=== PATIENT | female | born 1945 | race Caucasian/White ===

== ENCOUNTER → 2017-05-17 | Outpatient (CLI) | payer BC ==
[~2017-05-17] MED LIST: CALCTAB5 PO; DLB500 PO; GLUC1CAP33 PO; MULT-506 PO; NRN300 PO; SYN112 PO; TURM1POW PO; VALS160T58 PO; ZCR40 PO
--- NOTE | 2017-05-17 18:14 | DIAGNOSTIC IMAGING REPORT ---
LEFT HAND MIN 3 VIEWS ROUTINE CLINICAL HISTORY: PAIN IN LEFT HAND TRAUMA COMPARISON: None. DISCUSSION: The bones are osteopenic. No fractures or dislocations are visualized. There is no evidence of erosive disease. IMPRESSION: Osteopenia. No fractures or dislocations identified. Electronically signed by: Andrea Valentine M.D. 05/17/2017 6:13 PM Dictated Date/Time: 05/17/2017 6:12 PM
--- NOTE | 2017-05-17 18:14 | DIAGNOSTIC IMAGING REPORT ---
RIGHT FOOT MIN 3 VIEWS ROUTINE CLINICAL HISTORY: RIGHT FOOT PAIN Right pain COMPARISON: None. DISCUSSION: Generalized degenerative change. Osteopenia. Possible transverse nondisplaced fracture base fifth metatarsal.. Small heel spur. There is no evidence for soft tissue swelling. IMPRESSION: Nondisplaced transverse fracture base fifth metatarsal. Osteopenia/osteoporosis. Small heel spur. The above report was generated using voice recognition software. It may contain grammatical, syntax or spelling errors. Electronically signed by: Jacob Van M.D. 05/17/2017 6:13 PM Dictated Date/Time: 05/17/2017 6:11 PM
--- NOTE | 2017-05-17 18:15 | DIAGNOSTIC IMAGING REPORT ---
LEFT WRIST MIN 3 VIEWS ROUTINE CLINICAL HISTORY: PAIN IN LEFT HAND pain COMPARISON: None. DISCUSSION: Generalized degenerative change. Osteoporosis. No acute cortical abnormality. Mild nonspecific generalized soft tissue edema. IMPRESSION: Osteoporosis. Mild soft tissue edema. No acute bony abnormality. The above report was generated using voice recognition software. It may contain grammatical, syntax or spelling errors. Electronically signed by: Jacob Van M.D. 05/17/2017 6:14 PM Dictated Date/Time: 05/17/2017 6:13 PM
== END | disposition home or self-care (01) ==
LOC: C.RAD 17:29
PROVIDERS: ATTEND Nurse Practitioner Family
DX: M79.642 Pain in left hand (principal); S92.314A Nondisplaced fracture of first metatarsal bone, right foot, initial encounter for closed fracture; W18.30XA Fall on same level, unspecified, initial encounter; M81.0 Age-related osteoporosis without current pathological fracture; M85.89 Other specified disorders of bone density and structure, multiple sites

== ENCOUNTER → 2017-06-08 | Outpatient (CLI) | payer BC ==
--- NOTE | 2017-06-08 09:58 | DIAGNOSTIC IMAGING REPORT ---
RIGHT FOOT 3 VIEWS HISTORY: RIGHT FOOT PAIN Right COMPARISON: Right foot 05/17/2017. FINDINGS: The bones are osteopenic. Tiny plantar heel spur. Partially healed fracture at the base of the fifth metatarsal. No acute fractures identified. The Lisfranc joint is intact. Soft tissues are unremarkable. No radiopaque foreign bodies. IMPRESSION: Partially healed fracture at the base of the fifth metatarsal. Electronically signed by: Subhash Hernandez M.D. 06/08/2017 9:57 AM Dictated Date/Time: 06/08/2017 9:55 AM
== END | disposition home or self-care (01) ==
LOC: C.RDSM 10:00
PROVIDERS: ATTEND Physician Assistant
DX: M79.671 Pain in right foot (principal)

== ENCOUNTER → 2017-07-02 | Outpatient (CLI) | payer BC ==
--- NOTE | 2017-07-02 08:43 | DIAGNOSTIC IMAGING REPORT ---
RIGHT FOOT MIN 3 VIEWS CLINICAL HISTORY: Follow-up right foot fracture. COMPARISON: Right foot radiographs May 17, 2017 and June 08, 2017. FINDINGS: The tarsometatarsal joints are intact. Osteopenia is noted. The slightly distracted fracture within the base of the right fifth metatarsal is noted. There is minimal callus formation. No significant interval healing is noted since prior exam. Alignment is unchanged. No additional fractures are identified. IMPRESSION: No significant interval healing of the minimally distracted fracture of the base of the right fifth metatarsal since exam of June 08, 2017. Electronically signed by: Jose Heart M.D. 07/02/2017 8:41 AM Dictated Date/Time: 07/02/2017 8:38 AM
== END | disposition home or self-care (01) ==
LOC: C.RDSM 08:45
PROVIDERS: ATTEND Physician Assistant
DX: S92.351A Displaced fracture of fifth metatarsal bone, right foot, initial encounter for closed fracture (principal); X58.XXXA Exposure to other specified factors, initial encounter

== ENCOUNTER → 2017-07-06 | Outpatient (CLI) | payer BC ==
--- NOTE | 2017-07-09 13:33 | MAMMOGRAPHY REPORT ---
BILATERAL DIGITAL SCREENING MAMMOGRAM WITH CAD: 07/06/2017 TECHNIQUE: Current study was also evaluated with a Computer Aided Detection (CAD) system. Bilateral CC and MLO views were obtained. COMPARISON: Comparison is made to exams dated: 07/04/2016 mammogram, 07/01/2015 mammogram, and 011 mammogram - [facility]. BREAST COMPOSITION: The tissue of both breasts is extremely dense, which lowers the sensitivity of m ammography. FINDINGS: No suspicious masses, calcifications, or areas of architectural distortion are noted in ei ther breast. There has been no significant interval change compared to prior exams. Scattered bilater al benign-appearing calcifications are not significantly changed. IMPRESSION: ACR BI-RADS CATEGORY 2: BENIGN There is no mammographic evidence of malignancy. A 1 year screening mammogram is recommended. The pa tient will receive written notification of the results. Approximately 10% of breast cancers are not detected with mammography. A negative mammographic report should not delay biopsy if a clinically suggestive mass is present. Toshia Hall M.D. ah/:07/06/2017 17:00:40 Tight Cooper: Nuha MURILLO(Lynne)(M), [facility] letter sent: Normal 1/2 BI-RADS Code: ACR BI-RADS Category 2: Benign
== END | disposition home or self-care (01) ==
LOC: C.MAMM 09:57
PROVIDERS: ATTEND Family Medicine
DX: Z12.31 Encounter for screening mammogram for malignant neoplasm of breast (principal)

== ENCOUNTER → 2017-07-17 | Outpatient (CLI) | payer BC ==
[2017-07-17 12:24] LABS: CALCIUM 9.6 mg/dl (8.5-10.1)
[2017-07-17 12:38] LABS: INSULIN FASTING 9.5 mU/L (3-25)
[2017-07-17 12:39] LABS: THYROID STIMULATING HORMONE 2.19 uIu/ml (0.300-4.500)
== END | disposition home or self-care (01) ==
LOC: C.LAB1850 09:03
PROVIDERS: ATTEND Internal Medicine Endocrinology, Diabetes & Metabolism
DX: E03.9 Hypothyroidism, unspecified (principal); E06.3 Autoimmune thyroiditis; M81.0 Age-related osteoporosis without current pathological fracture; R79.9 Abnormal finding of blood chemistry, unspecified

== ENCOUNTER → 2017-08-23 | Outpatient (CLI) | payer BC ==
--- NOTE | 2017-08-23 16:42 | DIAGNOSTIC IMAGING REPORT ---
LEFT WRIST 4 VIEWS CLINICAL HISTORY: Left wrist pain. FINDINGS: 4 views of left wrist are compared to study dated 05/17/2017. The skeletal structures are heterogeneously osteopenic. No fracture is seen. There is mild narrowing at the radiocarpal articulation. Mild arthritic change is seen involving the intercarpal joints and at the first carpometacarpal joint. The overlying soft tissues are within normal limits. No erosive change is seen. IMPRESSION: Osteopenia and mild arthritic change as above. No left wrist fracture is identified. Electronically signed by: Royer Vega M.D. 08/23/2017 4:40 PM Dictated Date/Time: 08/23/2017 4:38 PM
== END | disposition home or self-care (01) ==
LOC: C.RAD 16:18
PROVIDERS: ATTEND Nurse Practitioner Family
DX: M25.532 Pain in left wrist (principal); M85.88 Other specified disorders of bone density and structure, other site

== ENCOUNTER → 2017-08-24 | Outpatient (CLI) | payer BC ==
--- NOTE | 2017-08-24 16:13 | DIAGNOSTIC IMAGING REPORT ---
L WRIST 2 VIEWS HISTORY: 71 years-old Female LEFT WRIST NAVICULAR PAIN acute left-sided wrist pain COMPARISON: Left wrist radiographs 08/23/2017 TECHNIQUE: Single navicular view of the left wrist FINDINGS: Bones appear mildly demineralized without acute fracture or dislocation. Mild to moderate degenerative changes are noted within the triscaphe and first carpometacarpal joints. Mild soft tissue swelling is noted lateral to the scaphoid. No opaque foreign body. IMPRESSION: 1. Mild soft tissue swelling without acute fracture or dislocation. 2. Mild to moderate degenerative changes as above. The above report was generated using voice recognition software. It may contain grammatical, syntax or spelling errors. Electronically signed by: Chidi Lopez M.D. 08/24/2017 4:11 PM Dictated Date/Time: 08/24/2017 4:06 PM
== END | disposition home or self-care (01) ==
LOC: C.RDSM 15:43
PROVIDERS: ATTEND Family Medicine
DX: M25.532 Pain in left wrist (principal); M19.032 Primary osteoarthritis, left wrist

== ENCOUNTER → 2017-09-04 | Day surgery (SDC) | payer BC ==
[~2017-09-04] VITALS: Ht 165.1 cm; Wt 57.0 kg
[~2017-09-04] MED LIST changes: +ACETAMINOPHEN 325 MG TAB ONE; +ACETAMINOPHEN 325 MG TAB PO SCH; +GABA-113 PO; +LEVO88TA3 PO; +SIMV20TA2 PO; +SODIUM CHLORIDE 0.9% 1000ML 1,000 ML IV SCH; +ZOLEDRONIC ACID INJ 5 MG in EMPTY BAG 0 ML IV SCH
[2017-09-04 13:14] VITALS: Ht 165.1 cm; Wt 57.0 kg
[2017-09-04 13:15] VITALS: BP_SYST 123; PULSE 69; TEMP 37; O2SAT 99
== END | disposition home or self-care (01) ==
LOC: C.MTU 12:51
PROVIDERS: ATTEND Family Medicine
DX: M81.0 Age-related osteoporosis without current pathological fracture (principal)

== ENCOUNTER → 2018-03-06 | Outpatient (CLI) | payer BC ==
[~2018-03-06] MED LIST changes: -ACETAMINOPHEN 325 MG TAB ONE; -ACETAMINOPHEN 325 MG TAB PO SCH; -NRN300 PO; -SODIUM CHLORIDE 0.9% 1000ML 1,000 ML IV SCH; -SYN112 PO; -ZCR40 PO; -ZOLEDRONIC ACID INJ 5 MG in EMPTY BAG 0 ML IV SCH
--- NOTE | 2018-03-06 18:49 | DIAGNOSTIC IMAGING REPORT ---
PA CHEST WITH RIGHT-SIDED RIB SERIES CLINICAL HISTORY: Right-sided chest wall pain. FINDINGS: A PA chest radiograph with 4 additional views may right-sided rib series is compared to study dated 09/29/2016. The heart is mildly enlarged and there is atherosclerotic calcification of the thoracic aorta. The pulmonary vasculature is noncongested. Chronic interstitial thickening is similar to previous. No airspace consolidation or pleural effusion is identified. No pneumothorax is seen. The skeletal structures are osteopenic. There is no radiographic evidence of acute/distracted right-sided rib fracture on the rib series. There is a chronic appearing right anterolateral eighth rib fracture. The remainder of the bony thorax is grossly intact. Mild degenerative change and scoliosis are noted in the thoracic spine. IMPRESSION: 1. Mild cardiac enlargement with no acute cardiopulmonary. 2. There is no radiographic evidence of acute/distracted right-sided rib fracture as clinically queried. Electronically signed by: Royer Vega M.D. 03/06/2018 6:48 PM Dictated Date/Time: 03/06/2018 6:45 PM
== END | disposition home or self-care (01) ==
LOC: C.RAD 17:59
PROVIDERS: ATTEND Nurse Practitioner Family
DX: R07.81 Pleurodynia (principal); W19.XXXA Unspecified fall, initial encounter